=== PATIENT | male | born 1970 | race Caucasian/White ===

== ENCOUNTER 2016-09-16 11:03 | Emergency (ER) | payer BC, OTHER ==
[2016-09-16 11:13] VITALS: BP 144/87; PULSE 77; RESP 18; TEMP 98; O2SAT 93
--- NOTE | 2016-09-16 12:20 | UCPHY ---
H & P Time Seen by Provider: 09/16/16 11:20 Patient Type: Established HPI/ROS: This patient has pain in the right 1st metatarsophalangeal joint. Symptoms been increasing over the past 3 days. Now reports 8/10 pain with associated tenderness and mild swelling. This the 1st time he has ever had the symptoms. He denies any acute trauma. He did go running the day before the symptoms started that is not uncommon for him. Symptoms worsen with walking or movement of the area. ROS: No fevers. No other constitutional symptoms. He reports no other joint pain. 5 point ROS is otherwise negative. Past Medical/Surgical History: No known family history of gout He has mild exercise-induced asthma Social History: Patient drinks beer typically 5 beers a week or so. He eat red meat with some regularity. Smoking Status: Never smoked Physical Exam: Physical Exam Vital signs are normal. General: No acute distress Eyes: Pupils equal and react to light. Extraocular motions are intact. Cardiac: Brisk capillary refill is intact throughout. Pulses are 2+ and symmetric in the affected extremity. Skin: No rash or pallor. Extremities: Atraumatic normal except for right great toe Right great toe: Patient has moderate swelling and exquisite tenderness to the 1st metatarsophalangeal joint with minimal warmth to touch. There are no skin lesions overlying this. No other foot tenderness or toe tenderness is noted. Patient has increased pain with movement of the toe. Neuro: Alert with normal mental status Initial differential diagnosis: Gout, stress fracture, bony lesion, pseudogout , doubt septic joint given lack of suggestive findings Constitutional: Initial Vital Signs Temperature (C) 36.6 C 09/16/16 11:08 Heart Rate 77 09/16/16 11:08 Respiratory Rate 18 09/16/16 11:08 Blood Pressure 144/87 H 09/16/16 11:08 O2 Sat (%) 93 09/16/16 11:08 O2 Delivery Mode Room Air Allergies/Adverse Reactions: No Known Allergies Allergy (Unverified 07/30/10 08:28) Home Medications: Medication Instructions Recorded Albuterol Sulfate 02/21/10 Hydrocodone/APAP 5/325 [[place] 1 - 2 tab PO Q4PRN PRN #20 tab 09/16/16 5/325 (*)] Indomethacin [Indocin 25 mg (RX)] 50 mg PO TID PRN #50 cap 09/16/16 MDM/Departure - MDM Diagnostics: Toe x-ray: Normal by my interpretation ED Course/Re-evaluation: Findings are clinically consistent with gout. I counseled patient regarding this. He is placed in a postop shoe for comfort. - Depart Disposition: Home, Routine, Self-Care Clinical Impression: Gout attack Qualifiers: Gout site: toe Gout etiology: unspecified cause Laterality: right Qualifier Code: (M10.9) Gout, unspecified Instructions: Low Purine Diet (ED), Gout (ED) Additional Instructions: Diagnosis: Gout attack of great toe Plan: Indomethacin anti-inflammatory. Do not take ibuprofen while on indomethacin as it is the same class-NSAID drug. Tylenol or Vicodin in addition as needed for pain. Postop shoe while up and about for comfort. Decrease the protein and alcohol intake drink plenty fluids until symptoms resolve. Prescriptions: Indomethacin [Indocin 25 mg (RX)] 50 mg PO TID PRN #50 cap PRN Reason: pain Hydrocodone/APAP 5/325 [[place] 5/325 (*)] 1 - 2 tab PO Q4PRN PRN #20 tab PRN Reason: Pain Referrals: Christal Alicia MD [Primary Care Provider] - As per Instructions - PQRS PQRS Measurement: NA
--- NOTE | 2016-09-16 12:39 | DX ---
Right Great Toe, 3 Views History: Pain at first metatarsophalangeal joint. Findings: Mild hypertrophy is seen in the medial first metatarsal head with mild spurring and subarti cular sclerosis. No evidence for acute fracture or dislocation. No evidence for periarticular erosion . No significant joint narrowing. Incidentally noted is probable old healed fracture of the fifth met atarsal. 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 No evidence for acute fra cture.
== END 2016-09-16 12:32 | disposition home or self-care (01) ==
LOC: CED 11:03
DX: M10.9 Gout, unspecified (principal); J45.990 Exercise induced bronchospasm
CPT/HCPCS: 73660-PO; 99214-PO; G0463-PO